=== PATIENT | female | born 1955 | race Caucasian/White ===

== ENCOUNTER 2021-11-17 16:47 | Inpatient (IN) | payer MEDICARE ==
[~2021-11-17] VITALS: Ht 162.6 cm; Wt 90.7 kg
[2021-11-17 21:20] VITALS: BP 109/64
[2021-11-18] MEDS ORDERED: NALOXONE HCL 0.4 MG/ML AMPUL IV PRN
[2021-11-18] MEDS ORDERED: REMEDY ESSENTIAL ZINC PASTE 113 GM TOP PRN (01:00)
[2021-11-18] MEDS ORDERED: FAMO-132 PO (02:13)
[2021-11-18] MEDS ORDERED: POLY119P2 PO (02:13)
[2021-11-18] MEDS ORDERED: PREG100C PO (02:13)
[2021-11-18] MEDS ORDERED: HYDR-3974 PO (02:13)
[2021-11-18] MEDS ORDERED: CYCL5TAB PO (02:13)
[2021-11-18] MEDS ORDERED: ROSU5TAB PO (02:13)
[2021-11-18] MEDS ORDERED: ONDA-104 PO (02:13)
[2021-11-18] MEDS ORDERED: LOSA50TA39 PO (02:13)
[2021-11-18] MEDS ORDERED: BISA10SU11 RC (02:13)
[2021-11-18] MEDS ORDERED: DOCU100C36 PO (02:13)
[2021-11-18] MEDS ORDERED: SENN-261 PO (02:13)
[2021-11-18] MEDS ORDERED: ACET-73 PO (02:13)
[2021-11-18] MEDS ORDERED: CANA100T PO (02:13)
[2021-11-18] MEDS ORDERED: HYDR-3980 PO (02:13)
[2021-11-18] MEDS: HYDROCODONE/APAP 10-325 MG TABLET PO PRN ×2 (03:31→10:28)
[2021-11-18 04:00] VITALS: BP 103/62
[2021-11-18] MEDS: OXYCODONE HCL 10 MG TAB.SR.12H PO SCH ×3 (05:30→22:49)
[2021-11-18 07:50] VITALS: BP 144/80
--- NOTE | 2021-11-18 09:01 | NUR ---
RECEIVED PT FROM [facility] PT ALERT AND ORIENTED X4 PT C/O PAIN AND HAS A LUMBAR DRESSING THAT NEEDS TO BE REPLACE MEDICATION GIVEN ORDERED. PT WAS GIVEN PAIN MEDICATION AND AND REASSESSED AFTER AN HOUR AFTERWARD DRESSING CHANGE IT WAS SEROSANGUINEOUS WILL ENDORSE TO AM NURSE OCONNELL. WILL CONTINUE TO MONITOR FOR SAFETY.
[2021-11-18] MEDS ORDERED: Medication Not On Formulary EA (Cyclobenzaprine Hcl 10 MG) PO SCH (10:00)
[2021-11-18] MEDS ORDERED: ACETAMINOPHEN ES 500 MG TABLET- SA PATIENTS-PAIN ONLY PO PRN (10:00)
[2021-11-18] MEDS ORDERED: ONDANSETRON HCL 4 MG TABLET PO PRN (10:00)
[2021-11-18] MEDS ORDERED: HYDROCODONE/APAP 10-325 MG TABLET PO PRN (10:00)
[2021-11-18] MEDS ORDERED: POLYETHYLENE GLYCOL 3350 238 GM POWDER PO SCH (10:00)
[2021-11-18] MEDS ORDERED: BISACODYL 10 MG SUPP.RECT RC PRN (10:00)
[2021-11-18] MEDS ORDERED: CYCLOBENZAPRINE HCL 10 MG TABLET PO PRN (10:15)
[2021-11-18] MEDS ORDERED: ACETAMINOPHEN ES 500 MG TABLET PO PRN (10:15)
[2021-11-18] MEDS: PREGABALIN 100 MG CAPSULE PO SCH ×2 (10:27→16:53)
[2021-11-18] MEDS: LOSARTAN POTASSIUM 50 MG TABLET PO SCH (10:27)
[2021-11-18] MEDS: FAMOTIDINE 20 MG TABLET PO SCH ×2 (10:28→16:53)
[2021-11-18] MEDS: MIRALAX 17 GM POWD.PACK PO SCH (10:28)
[2021-11-18] MEDS ORDERED: ERGO2500 PO (11:08)
[2021-11-18] MEDS ORDERED: RIVA10TA PO (11:08)
[2021-11-18] MEDS ORDERED: ERGOCALCIFEROL 50,000 UNIT CAPSULE PO SCH (11:15)
[2021-11-18 16:40] VITALS: BP 101/50
[2021-11-18] MEDS: DOCUSATE SODIUM 100 MG CAPSULE PO SCH (16:52)
[2021-11-18] MEDS: RIVAROXABAN 10 MG TABLET PO SCH (17:04)
[2021-11-18] MEDS ORDERED: RIVAROXABAN 10 MG TABLET PO SCH (18:00)
--- NOTE | 2021-11-18 20:00 | NUR ---
NSG: Received patient lying in bed. alert and oriented x4. no c/o pain or discomfort at this time. call light w/in reach.
[2021-11-18 20:30] VITALS: BP 102/52
[2021-11-18 22:58] VITALS: BP 111/70
--- NOTE | 2021-11-19 05:41 | NUR ---
NSG: PATIENT REMAIN CALM AND COOPERATIVE WITH CARE AND AM LAB. NO C/O PAIN OR DISCOMFORT AT THIS TIME. MRSA SWAB SENT TO LAB ORDERED. ASSISTED WITH ADL'S.CALL LIGHT W/IN REACH.
[2021-11-19] MEDS: HYDROCODONE/APAP 10-325 MG TABLET PO PRN ×3 (06:12→17:20)
[2021-11-19] MEDS: OXYCODONE HCL 10 MG TAB.SR.12H PO SCH ×3 (06:16→21:25)
[2021-11-19 07:47] VITALS: BP 106/64
[2021-11-19] MEDS: FAMOTIDINE 20 MG TABLET PO SCH ×2 (08:16→17:19)
[2021-11-19] MEDS: PREGABALIN 100 MG CAPSULE PO SCH ×2 (08:16→17:20)
[2021-11-19] MEDS: MIRALAX 17 GM POWD.PACK PO SCH (08:16)
[2021-11-19] MEDS: DOCUSATE SODIUM 100 MG CAPSULE PO SCH ×2 (08:16→17:20)
[2021-11-19] MEDS: LOSARTAN POTASSIUM 50 MG TABLET PO SCH (08:17)
[2021-11-19] MEDS ORDERED: CANAGLIFLOZIN 100 MG PO SCH (09:00)
--- NOTE | 2021-11-19 12:15 | NUR ---
Taking over care for patient from ALBA Lott. Pt is a/o x 4, no complaints of pain at this time. Will continue to monitor.
[2021-11-19 16:00] VITALS: BP 107/36
[2021-11-19] MEDS: RIVAROXABAN 10 MG TABLET PO SCH (17:20)
[2021-11-19 20:09] VITALS: BP 109/45
[2021-11-19] MEDS: ATORVASTATIN 10 MG TABLET PO SCH (21:09)
[2021-11-20 04:00] VITALS: BP 106/59
[2021-11-20] MEDS: OXYCODONE HCL 10 MG TAB.SR.12H PO SCH ×3 (05:17→21:50)
[2021-11-20] MEDS: SENNOSIDES 1 TABLET PO PRN (05:17)
[2021-11-20 07:35] VITALS: BP 119/66
[2021-11-20] MEDS: PREGABALIN 100 MG CAPSULE PO SCH ×2 (08:10→17:07)
[2021-11-20] MEDS ORDERED: Medication Not On Formulary EA (Rosuvastatin Calcium (Crestor) 5 MG) PO SCH (09:00)
--- NOTE | 2021-11-20 09:06 | NUR ---
INDIVIDUALIZED PLAN OF CARE
[2021-11-20] MEDS: MIRALAX 17 GM POWD.PACK PO SCH (09:07)
[2021-11-20] MEDS: DOCUSATE SODIUM 100 MG CAPSULE PO SCH ×2 (09:07→17:07)
[2021-11-20] MEDS: FAMOTIDINE 20 MG TABLET PO SCH ×2 (09:07→17:07)
[2021-11-20] MEDS: ERGOCALCIFEROL 50,000 UNIT CAPSULE PO SCH (09:07)
[2021-11-20] MEDS: LOSARTAN POTASSIUM 50 MG TABLET PO SCH (09:08)
[2021-11-20] MEDS: HYDROCODONE/APAP 10-325 MG TABLET PO PRN (09:14)
[2021-11-20] MEDS: MOMETASONE FUROATE 15 GM CREAM.GM. TOP SCH (14:13)
[2021-11-20 16:00] VITALS: BP 94/50
[2021-11-20] MEDS: RIVAROXABAN 10 MG TABLET PO SCH (17:08)
[2021-11-20 20:00] VITALS: BP 103/76
[2021-11-21] VITALS: BP 120/72
[2021-11-21 04:00] VITALS: BP 105/55
[2021-11-21] MEDS: OXYCODONE HCL 10 MG TAB.SR.12H PO SCH ×3 (06:04→21:19)
--- NOTE | 2021-11-21 07:42 | NUR ---
Patient in bed, awake, alert and oriented, no acute respiratory or physical distress noted. Able to verbalize her needs and follow directions. Patient watching TV at this time. Call light within reach, encouraged to please use it every timne help is needed.
[2021-11-21 08:09] VITALS: BP 100/63
[2021-11-21] MEDS: LOSARTAN POTASSIUM 50 MG TABLET PO SCH ×2 (08:33→08:34)
[2021-11-21] MEDS: DOCUSATE SODIUM 100 MG CAPSULE PO SCH ×2 (08:33→17:05)
[2021-11-21] MEDS: PREGABALIN 100 MG CAPSULE PO SCH ×3 (08:33→17:45)
[2021-11-21] MEDS: FAMOTIDINE 20 MG TABLET PO SCH ×2 (08:33→17:05)
[2021-11-21] MEDS: MIRALAX 17 GM POWD.PACK PO SCH (08:34)
[2021-11-21] MEDS: MOMETASONE FUROATE 15 GM CREAM.GM. TOP SCH (08:35)
[2021-11-21] MEDS: GLUCERNA SHAKE 237 ML CAN PO SCH (09:05)
--- NOTE | 2021-11-21 09:20 | NUR ---
0915-Scheduled/due medication administered with no ASE noted, oral fluids encouraged and taken well. Patient denies any discomfort. Call light at reach.
[2021-11-21 11:33] LABS: CREATININE 0.9 mg/dL (0.6-1.3); POTASSIUM 4.8 mmol/L (3.5-5.1)
[2021-11-21 11:39] LABS: BILIRUBIN,TOTAL 0.6 mg/dL (0.2-1.0); TOTAL PROTEIN, SERUM 7.2 g/dL (6.4-8.2)
[2021-11-21 12:02] LABS: HEMATOCRIT 34.4 % (31.2-41.9); MEAN CORPUSCULAR HEMOGLOBIN 32.2 uug (24.7-32.8); MEAN CORPUSCULAR VOLUME 93.6 fL (75.5-95.3); PLATELET COUNT (AUTO) 337 K/uL (179-408)
--- NOTE | 2021-11-21 12:56 | NUR ---
LOWER BACK SURGERY, S/P SPINAL STENOSIS L4-L5 LUMBAR AREA SURGICAL SITE, TREATMENT PROVIDED, SURGICAL LINE INTACT, NO ACTIVE BLEEDING/DRAINAGE/SWELLING OR REDNESS NOTED. PATIENT ÁNGELA. WELL, DENIES PAIN, CLEAN DD APPLIED.
--- NOTE | 2021-11-21 13:07 | NUR ---
SEEN AND EXAMINED BY Dr. CAMILO WITH ORDERS TO DC CURRENT LYRICA ORDER OF 100 MG BID AND START LYRICA 100MG TID. ORDERS NOTED AND CARRIED OUT. PATIENT INFORMED OF ORDERS BY Dr. CAMILO.
--- NOTE | 2021-11-21 14:12 | NUR ---
1400-PATIENT REC'D A PHONE CALL FROM Dr. ODONNELL, PER PATIENT Dr. ODONNELL DISCUSSED WITH HER DISCHARGE CARE INSTRUCTIONS, PER PATIENT SHE UNDERSTOOD ALL INSTRUCTIONS GIVEN AND ALSO, Dr. ODONNELL SPOKE TO HER DAUGHTER (PATIENT'S DAUGHTER) AT 10: 06 AM.
[2021-11-21 16:40] VITALS: BP 109/52
[2021-11-21] MEDS: RIVAROXABAN 10 MG TABLET PO SCH (17:06)
[2021-11-21] MEDS: HYDROCODONE/APAP 10-325 MG TABLET PO PRN (17:14)
[2021-11-21 20:00] VITALS: BP 97/56
[2021-11-21] MEDS: ATORVASTATIN 10 MG TABLET PO SCH (20:03)
[2021-11-22 03:40] LABS: *BLOOD, URINE NEGATIVE (NEGATIVE); *CLARITY,URINE CLEAR (CLEAR); *COLOR,URINE YELLOW (YELLOW); PH,URINE 5.5 (5.0-8.0); UGLUCOSE 1+ (NEGATIVE)
[2021-11-22 03:41] LABS: *KETONES,URINE NEGATIVE (NEGATIVE); *UROBILINOGEN,URINE 0.2 E.U./dl (NORMAL)
[2021-11-22 03:42] LABS: *BILIRUBIN,URIN NEGATIVE (NEGATIVE); LEUKOCYTE ESTERASE ,URINE NEGATIVE (NEGATIVE); NITRITE, URINE NEGATIVE (NEGATIVE)
[2021-11-22 04:00] VITALS: BP 148/80
[2021-11-22 04:13] LABS: BACTERIA,URINE NONE SEEN /HPF (NONE SEEN); RBC,URINE NONE SEEN /HPF (0-3); SQUAMOUS EPITHELIAL CELL,UR MODERATE /HPF (NONE SEEN); URINE AMORPHOUS URATE FEW /HPF; WBC,URINE NONE SEEN /HPF (0-3)
[2021-11-22] MEDS: OXYCODONE HCL 10 MG TAB.SR.12H PO SCH ×3 (06:05→21:15)
[2021-11-22 07:48] VITALS: BP 132/69
[2021-11-22] MEDS: DOCUSATE SODIUM 100 MG CAPSULE PO SCH ×2 (08:51→17:02)
[2021-11-22] MEDS: FAMOTIDINE 20 MG TABLET PO SCH ×2 (08:51→17:02)
[2021-11-22] MEDS: PREGABALIN 100 MG CAPSULE PO SCH ×3 (08:51→17:02)
[2021-11-22] MEDS: MOMETASONE FUROATE 15 GM CREAM.GM. TOP SCH (08:51)
[2021-11-22] MEDS: MIRALAX 17 GM POWD.PACK PO SCH ×2 (08:51→08:56)
[2021-11-22] MEDS: GLUCERNA SHAKE 237 ML CAN PO SCH (08:52)
[2021-11-22] MEDS: HYDROCODONE/APAP 10-325 MG TABLET PO PRN (08:52)
[2021-11-22 15:12] VITALS: BP 108/77
[2021-11-22] MEDS: HYDROCODONE/APAP 5-325MG TABLET PO PRN (17:03)
[2021-11-22] MEDS: RIVAROXABAN 10 MG TABLET PO SCH (18:42)
[2021-11-22 20:19] VITALS: BP 95/54
--- NOTE | 2021-11-23 04:06 | NUR ---
AAOx4 Admitted for lumbar laminectomy with fusion. Lower back incision with sutures intact, no drainage noted. All needs attended. VSS. Pain meds given as ordered with relief obtained. Continent of bowel and bladder. No acute distress noted. Will monitor patient.
[2021-11-23 04:16] VITALS: BP 106/68
[2021-11-23] MEDS: OXYCODONE HCL 10 MG TAB.SR.12H PO SCH ×3 (05:32→22:00)
[2021-11-23 08:13] VITALS: BP 99/63
[2021-11-23] MEDS: GLUCERNA SHAKE 237 ML CAN PO SCH (08:24)
[2021-11-23] MEDS: MIRALAX 17 GM POWD.PACK PO SCH (08:24)
[2021-11-23] MEDS: FAMOTIDINE 20 MG TABLET PO SCH ×2 (08:24→16:33)
[2021-11-23] MEDS: PREGABALIN 100 MG CAPSULE PO SCH ×3 (08:24→16:32)
[2021-11-23] MEDS: DOCUSATE SODIUM 100 MG CAPSULE PO SCH ×2 (08:24→16:33)
[2021-11-23] MEDS: MOMETASONE FUROATE 15 GM CREAM.GM. TOP SCH (08:25)
[2021-11-23] MEDS: HYDROCODONE/APAP 5-325MG TABLET PO PRN (08:35)
[2021-11-23] MEDS: SENNOSIDES 1 TABLET PO PRN (09:24)
--- NOTE | 2021-11-23 14:12 | NUR ---
INTERDISCIPLINARY TEAM CONFERENCE
[2021-11-23] MEDS: HYDROCODONE/APAP 10-325 MG TABLET PO PRN (16:33)
[2021-11-23] MEDS: RIVAROXABAN 10 MG TABLET PO SCH (17:08)
[2021-11-23 17:13] VITALS: BP 103/55
--- NOTE | 2021-11-23 18:56 | NUR ---
no acute distress noted. back incision site is clean and dry.
[2021-11-23 20:00] VITALS: BP 107/54
[2021-11-23] MEDS: ATORVASTATIN 10 MG TABLET PO SCH (21:00)
[2021-11-24 04:00] VITALS: BP 119/68
--- NOTE | 2021-11-24 06:00 | NUR ---
--PT CONT. WITH STABLE VS. PT HAS BEEN A/OX4. PT MED WITH OXYCONTIN 10MG PO ROUTINE MED. PT HAD C/O PAIN BUT STATES RELIEF AFTER BEING MED. PT RATES PAIN AT 7/10 FROM BACK PAIN. GEN COND HAS BEEN STABLE. PT ENDORSED TO SAE TAY RN
[2021-11-24] MEDS: OXYCODONE HCL 10 MG TAB.SR.12H PO SCH ×3 (06:35→21:41)
[2021-11-24 07:46] VITALS: BP 105/57
[2021-11-24] MEDS: PREGABALIN 100 MG CAPSULE PO SCH ×3 (08:07→16:10)
[2021-11-24] MEDS: FAMOTIDINE 20 MG TABLET PO SCH ×2 (08:07→16:10)
[2021-11-24] MEDS: DOCUSATE SODIUM 100 MG CAPSULE PO SCH ×2 (08:08→16:10)
[2021-11-24] MEDS: MIRALAX 17 GM POWD.PACK PO SCH (08:08)
[2021-11-24] MEDS: GLUCERNA SHAKE 237 ML CAN PO SCH (08:08)
[2021-11-24] MEDS: MOMETASONE FUROATE 15 GM CREAM.GM. TOP SCH (08:55)
[2021-11-24 15:12] VITALS: BP 108/56
[2021-11-24] MEDS: RIVAROXABAN 10 MG TABLET PO SCH (17:15)
[2021-11-24] MEDS: HYDROCODONE/APAP 10-325 MG TABLET PO PRN (17:18)
[2021-11-24 20:00] VITALS: BP 109/58
[2021-11-25 04:00] VITALS: BP 120/66
[2021-11-25] MEDS: OXYCODONE HCL 10 MG TAB.SR.12H PO SCH ×3 (05:10→21:08)
[2021-11-25 07:40] VITALS: BP 119/57
[2021-11-25] MEDS: DOCUSATE SODIUM 100 MG CAPSULE PO SCH ×2 (09:29→17:21)
[2021-11-25] MEDS: PREGABALIN 100 MG CAPSULE PO SCH ×3 (09:29→17:21)
[2021-11-25] MEDS: GLUCERNA SHAKE 237 ML CAN PO SCH (09:29)
[2021-11-25] MEDS: MIRALAX 17 GM POWD.PACK PO SCH (09:29)
[2021-11-25] MEDS: FAMOTIDINE 20 MG TABLET PO SCH ×2 (09:29→17:21)
[2021-11-25] MEDS: MOMETASONE FUROATE 15 GM CREAM.GM. TOP SCH (09:30)
[2021-11-25] MEDS: HYDROCODONE/APAP 10-325 MG TABLET PO PRN ×2 (12:02→17:23)
[2021-11-25 15:17] VITALS: BP 115/55
[2021-11-25] MEDS: RIVAROXABAN 10 MG TABLET PO SCH (17:22)
[2021-11-25 20:00] VITALS: BP 110/63
[2021-11-25] MEDS: ATORVASTATIN 10 MG TABLET PO SCH (20:36)
--- NOTE | 2021-11-26 04:08 | NUR ---
AAOx4 Admitted for lumbar fusion. All needs attended. VSS. Kept comfortable. Continent of bowel and bladder. Kept clean and dry. No distress noted.
[2021-11-26] MEDS: OXYCODONE HCL 10 MG TAB.SR.12H PO SCH ×3 (05:15→21:21)
[2021-11-26 08:35] VITALS: BP 111/63
[2021-11-26] MEDS: DOCUSATE SODIUM 100 MG CAPSULE PO SCH ×2 (08:53→16:15)
[2021-11-26] MEDS: FAMOTIDINE 20 MG TABLET PO SCH ×2 (08:53→16:15)
[2021-11-26] MEDS: PREGABALIN 100 MG CAPSULE PO SCH ×3 (08:53→16:15)
[2021-11-26] MEDS: GLUCERNA SHAKE 237 ML CAN PO SCH (08:54)
[2021-11-26] MEDS: MIRALAX 17 GM POWD.PACK PO SCH (08:54)
[2021-11-26] MEDS: MOMETASONE FUROATE 15 GM CREAM.GM. TOP SCH (08:54)
[2021-11-26] MEDS: HYDROCODONE/APAP 10-325 MG TABLET PO PRN (11:03)
[2021-11-26 15:09] VITALS: BP 117/60
[2021-11-26] MEDS: RIVAROXABAN 10 MG TABLET PO SCH (17:07)
--- NOTE | 2021-11-26 17:45 | NUR ---
back incision is dry and clean. dressing changed, no acute distress noted
[2021-11-26 20:00] VITALS: BP 119/63
--- NOTE | 2021-11-27 04:25 | NUR ---
AAOx4 All needs attended. VSS No acute distress noted. Pain meds given as scheduled. Will monitor patient. Back incision dressing intact.
[2021-11-27 05:12] VITALS: BP 130/70
[2021-11-27] MEDS: OXYCODONE HCL 10 MG TAB.SR.12H PO SCH ×3 (05:34→21:01)
[2021-11-27 07:53] VITALS: BP 106/60
[2021-11-27] MEDS: PREGABALIN 100 MG CAPSULE PO SCH ×3 (08:15→16:58)
[2021-11-27] MEDS: FAMOTIDINE 20 MG TABLET PO SCH ×2 (08:21→16:58)
[2021-11-27] MEDS: HYDROCODONE/APAP 10-325 MG TABLET PO PRN ×2 (08:21→17:10)
[2021-11-27] MEDS: ERGOCALCIFEROL 50,000 UNIT CAPSULE PO SCH (08:21)
[2021-11-27] MEDS: DOCUSATE SODIUM 100 MG CAPSULE PO SCH ×2 (08:21→17:00)
[2021-11-27] MEDS: MIRALAX 17 GM POWD.PACK PO SCH (08:22)
[2021-11-27] MEDS: MOMETASONE FUROATE 15 GM CREAM.GM. TOP SCH (08:24)
[2021-11-27] MEDS: GLUCERNA SHAKE 237 ML CAN PO SCH (08:26)
[2021-11-27 15:52] VITALS: BP 112/68
[2021-11-27] MEDS: RIVAROXABAN 10 MG TABLET PO SCH (17:01)
[2021-11-27 20:00] VITALS: BP 96/51
[2021-11-27] MEDS: ATORVASTATIN 10 MG TABLET PO SCH (20:22)
[2021-11-28 04:00] VITALS: BP 92/51
[2021-11-28] MEDS: OXYCODONE HCL 10 MG TAB.SR.12H PO SCH ×3 (05:05→21:16)
[2021-11-28 07:31] VITALS: BP 103/59
[2021-11-28] MEDS: DOCUSATE SODIUM 100 MG CAPSULE PO SCH ×2 (09:00→16:57)
[2021-11-28] MEDS: MIRALAX 17 GM POWD.PACK PO SCH (09:00)
[2021-11-28] MEDS: FAMOTIDINE 20 MG TABLET PO SCH ×2 (09:46→16:53)
[2021-11-28] MEDS: GLUCERNA SHAKE 237 ML CAN PO SCH (09:47)
[2021-11-28] MEDS: PREGABALIN 100 MG CAPSULE PO SCH ×3 (09:50→16:53)
[2021-11-28] MEDS: HYDROCODONE/APAP 10-325 MG TABLET PO PRN ×2 (11:24→16:53)
[2021-11-28] MEDS ORDERED: LIDOCAINE HCL 1% 20 ML VIAL IJ PRN (13:00)
[2021-11-28] MEDS: MOMETASONE FUROATE 15 GM CREAM.GM. TOP SCH (13:07)
[2021-11-28] MEDS ORDERED: TRIAMCINOLONE ACETONIDE 40 MG/1 ML VIAL IM ONE (13:30)
--- NOTE | 2021-11-28 14:33 | NUR ---
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 She is A&O x4. Pt is breathing normal room air. No apparent distress nor discomfort noted. She is calm and relaxed and cooperative. 11/15/21 laminectomy suture done. Pt has a back brace. She is full code on regular diet and no known allergies. Pt is continence. Skin intact, cool to the touch. She is able to use walker with mod assist. She is in bed, transfer and ambulate with [id number]. request norco for pain on right knee, doctor came and saw patient today. She is scheduled to be d/c 12/02/21. No new concerns reported. Will continue to monitor.
[2021-11-28 15:30] VITALS: BP 110/70
[2021-11-28 16:33] VITALS: BP 127/65
[2021-11-28] MEDS: RIVAROXABAN 10 MG TABLET PO SCH (18:06)
[2021-11-28 20:00] VITALS: BP 102/56
[2021-11-29 04:00] VITALS: BP 118/64
[2021-11-29] MEDS: OXYCODONE HCL 10 MG TAB.SR.12H PO SCH ×3 (05:45→21:40)
[2021-11-29] MEDS: DOCUSATE SODIUM 100 MG CAPSULE PO SCH ×2 (08:03→16:21)
[2021-11-29] MEDS: PREGABALIN 100 MG CAPSULE PO SCH ×3 (08:03→16:21)
[2021-11-29] MEDS: FAMOTIDINE 20 MG TABLET PO SCH ×2 (08:03→16:21)
[2021-11-29] MEDS: MOMETASONE FUROATE 15 GM CREAM.GM. TOP SCH (08:03)
[2021-11-29] MEDS: MIRALAX 17 GM POWD.PACK PO SCH (08:03)
[2021-11-29] MEDS: GLUCERNA SHAKE 237 ML CAN PO SCH (08:05)
[2021-11-29 09:37] VITALS: BP 109/62
--- NOTE | 2021-11-29 10:21 | NUR ---
WOUND CARE CONSULT: PT PRESENTS INDEPENDENT WITH BED MOBILITY (CURRENT ZELDA SCORE OF 19) WITH CLOSED INCISION TO BACK AND ABRASION/OPEN SKIN TO LEFT UPPER BUTTOCK. PT STATES THAT SHE USES A BACK BRACE. RECOMMEND SURGICAL CONSULT. DISCUSSED SKIN PROTECTION WITH NURSING STAFF. IN AGREEMENT WITH PLAN OF CARE. Addendum: 11/29/21 at 1022 by CAROLINA NIX RN Amended: Links added.
[2021-11-29 15:50] VITALS: BP 126/64
[2021-11-29] MEDS: RIVAROXABAN 10 MG TABLET PO SCH (17:09)
[2021-11-29] MEDS: HYDROCODONE/APAP 5-325MG TABLET PO PRN (18:23)
[2021-11-29 20:00] VITALS: BP 115/61
[2021-11-29] MEDS: ATORVASTATIN 10 MG TABLET PO SCH (20:32)
[2021-11-29] MEDS: NEOMY/BACITRAC/POLYMI OINT 28.35 GM TUBE TOP SCH (21:30)
--- NOTE | 2021-11-29 22:02 | NUR ---
Triple antibiotic ointment not available pharmacy close. Will administer in am.
[2021-11-30 04:00] VITALS: BP 109/70
--- NOTE | 2021-11-30 04:25 | NUR ---
AAOx4 Quiet night. OOB with walker to the BR. Voiding well. All due meds given. Pain meds given without difficulty. Back incision intact, dressing in place. Will monitor patient. Fall precautions maintained. Siderails up for safety.
[2021-11-30] MEDS: OXYCODONE HCL 10 MG TAB.SR.12H PO SCH ×3 (05:16→22:03)
[2021-11-30 07:37] VITALS: BP 117/67
[2021-11-30] MEDS: FAMOTIDINE 20 MG TABLET PO SCH ×2 (08:58→16:41)
[2021-11-30] MEDS: DOCUSATE SODIUM 100 MG CAPSULE PO SCH ×2 (08:58→16:40)
[2021-11-30] MEDS: MIRALAX 17 GM POWD.PACK PO SCH (08:58)
[2021-11-30] MEDS: PREGABALIN 100 MG CAPSULE PO SCH ×3 (08:58→16:40)
[2021-11-30] MEDS: NEOMY/BACITRAC/POLYMI OINT 28.35 GM TUBE TOP SCH (08:59)
[2021-11-30] MEDS: MOMETASONE FUROATE 15 GM CREAM.GM. TOP SCH (09:00)
[2021-11-30] MEDS: GLUCERNA SHAKE 237 ML CAN PO SCH (09:02)
[2021-11-30] MEDS: HYDROCODONE/APAP 10-325 MG TABLET PO PRN (12:51)
--- NOTE | 2021-11-30 14:34 | NUR ---
0730-Rec'd patient in bed, awake, alert and verbally communicative, denies any discomfort at this time; no respiratory distress noted, Patient in stable conditions. Safety measures in place and call light at reach. 0900-Scheduled/due medications administered as ordered with no ASE, oral fluids taken well. Mometasone Furoate cream applied to top of left foot; treatment provided to lower back surgery site, Triple Antibiotic Ointment and a clean DD applied, patient susanna. well and denies any pain; Back brace in place when OOB. 1000-Patient out to therapy, ambulates with supervision and using a FWW, safety precautions reminders provided as needed. 8080-[id number] Stokes, specimen obtained and taken to the lab. 1430-Patient in bed, awake, no respiratory distress noted, oral fluids encouraged as susanna. patient's daughter at bedside visiting, encouraged to ask for assist every time help is needed with good understanding.
--- NOTE | 2021-11-30 15:29 | NUR ---
INTERDISCIPLINARY TEAM CONFERENCE
[2021-11-30 15:44] VITALS: BP 106/63
[2021-11-30] MEDS: ARGININE/GLUTAMINE/CALCIUM BMB 1 EACH POWD.PACK PO SCH (17:41)
[2021-11-30] MEDS: RIVAROXABAN 10 MG TABLET PO SCH (18:05)
[2021-11-30 20:00] VITALS: BP 98/55
[2021-12-01 04:00] VITALS: BP 134/68
[2021-12-01] MEDS: OXYCODONE HCL 10 MG TAB.SR.12H PO SCH ×2 (06:04→14:13)
[2021-12-01 06:24] LABS: HEMATOCRIT 31.3 % (31.2-41.9); MEAN CORPUSCULAR HEMOGLOBIN 32.3 uug (24.7-32.8); MEAN CORPUSCULAR VOLUME 93.4 fL (75.5-95.3); PLATELET COUNT (AUTO) 264 K/uL (179-408)
[2021-12-01 06:31] LABS: BILIRUBIN,TOTAL 0.3 mg/dL (0.2-1.0); CREATININE 0.9 mg/dL (0.6-1.3); POTASSIUM 3.8 mmol/L (3.5-5.1); TOTAL PROTEIN, SERUM 6.6 g/dL (6.4-8.2)
[2021-12-01 07:36] VITALS: BP 127/64
[2021-12-01 07:49] VITALS: BP 127/64
[2021-12-01] MEDS: DOCUSATE SODIUM 100 MG CAPSULE PO SCH ×2 (08:43→08:47)
[2021-12-01] MEDS: PREGABALIN 100 MG CAPSULE PO SCH ×3 (08:43→16:42)
[2021-12-01] MEDS: FAMOTIDINE 20 MG TABLET PO SCH ×2 (08:43→16:43)
[2021-12-01] MEDS: MIRALAX 17 GM POWD.PACK PO SCH (08:44)
[2021-12-01] MEDS: NEOMY/BACITRAC/POLYMI OINT 28.35 GM TUBE TOP SCH (08:44)
[2021-12-01] MEDS: MOMETASONE FUROATE 15 GM CREAM.GM. TOP SCH (08:44)
[2021-12-01] MEDS: ARGININE/GLUTAMINE/CALCIUM BMB 1 EACH POWD.PACK PO SCH (08:45)
[2021-12-01] MEDS: GLUCERNA SHAKE 237 ML CAN PO SCH (08:45)
[2021-12-01 10:03] LABS: *BILIRUBIN,URIN NEGATIVE (NEGATIVE); *BLOOD, URINE NEGATIVE (NEGATIVE); *CLARITY,URINE CLEAR (CLEAR); *COLOR,URINE YELLOW (YELLOW); *KETONES,URINE NEGATIVE (NEGATIVE); *UROBILINOGEN,URINE 0.2 E.U./dl (NORMAL); LEUKOCYTE ESTERASE ,URINE 1+ (NEGATIVE); NITRITE, URINE NEGATIVE (NEGATIVE); PH,URINE 6.5 (5.0-8.0); UGLUCOSE NEGATIVE (NEGATIVE)
[2021-12-01] MEDS: HYDROCODONE/APAP 10-325 MG TABLET PO PRN ×2 (10:43→16:45)
[2021-12-01 12:53] LABS: BACTERIA,URINE FEW /HPF (NONE SEEN); RBC,URINE NONE SEEN /HPF (0-3); SQUAMOUS EPITHELIAL CELL,UR FEW /HPF (NONE SEEN)
--- NOTE | 2021-12-01 16:53 | NUR ---
Patient was picked up by [facility] ambulance to be taken to [facility], full report given to Meg RN at said facility. Patient was medicated with norco 10/325mg PRN based on her pain level needs/ordered by MD. Scheduled medication, Lyrica & Famotidine administered as well; patient left in good stable conditions. All belongings/paperwork needed given. VSS, patient left expressing to be thankful and appreciative for the services provided and to the staff for the good care rec'd.
== END 2021-12-01 17:00 | DRG 560 ==
PROVIDERS: ADMIT Physical Medicine & Rehabilitation Pain Medicine; ATTEND Physical Medicine & Rehabilitation Pain Medicine
DX: Z47.89 Encounter for other orthopedic aftercare (principal); E44.1 Mild protein-calorie malnutrition; M43.16 Spondylolisthesis, lumbar region; M54.16 Radiculopathy, lumbar region; M48.061 Spinal stenosis, lumbar region without neurogenic claudication; G89.4 Chronic pain syndrome; E11.9 Type 2 diabetes mellitus without complications; E88.09 Other disorders of plasma-protein metabolism, not elsewhere classified; I10 Essential (primary) hypertension; Z91.81 History of falling; Z98.1 Arthrodesis status; F32.A Depression, unspecified; F41.9 Anxiety disorder, unspecified; S30.810A Abrasion of lower back and pelvis, initial encounter; X58.XXXA Exposure to other specified factors, initial encounter; Y93.89 Activity, other specified; Y92.230 Patient room in hospital as the place of occurrence of the external cause
CPT/HCPCS: 36415; 85025; 87086; 97535-GO-CO; J3301; J3490

== ENCOUNTER 2023-08-30 14:28 | Inpatient (IN) | payer MEDICARE, OTHER ==
[~2023-08-30] VITALS: Ht 154.9 cm; Wt 90.7 kg
[~2023-08-30 14:28] MED LIST: ACET-73 PO; BISA10SU11 RC; CYCL5TAB PO; DOCU100C36 PO; ERGO2500 PO; FAMO-132 PO; HYDR-3974 PO; HYDR-3980 PO; LOSA50TA39 PO; ONDA-104 PO; POLY119P2 PO; PREG100C PO; RIVA10TA PO; ROSU5TAB PO; SENN-261 PO
[2023-08-30 23:55] VITALS: BP 130/78; TEMP 98.1; O2SAT 95
[2023-08-31] MEDS ORDERED: HYDR-3980 PO (02:33)
[2023-08-31] MEDS ORDERED: DOCU100C36 PO (02:35)
[2023-08-31] MEDS ORDERED: GABA-532 PO ×2 (02:40→09:55)
[2023-08-31] MEDS ORDERED: POLY250017 PO (02:41)
[2023-08-31] MEDS ORDERED: DAPA10TA PO (02:42)
[2023-08-31] MEDS ORDERED: PROP60CA2 PO (02:47)
[2023-08-31] MEDS ORDERED: RIVA2.5T PO (02:49)
[2023-08-31] MEDS ORDERED: ROSU5TAB PO (02:50)
[2023-08-31] MEDS ORDERED: SEMA0.253 SQ (03:02)
[2023-08-31] MEDS: GABAPENTIN 100 MG CAPSULE PO SCH (06:00)
[2023-08-31] MEDS ORDERED: ERGOCALCIFEROL 50000 UNIT PO SCH (06:00)
[2023-08-31] MEDS ORDERED: ROSUVASTATIN CALCIUM PO SCH (06:00)
[2023-08-31 06:05] VITALS: BP 120/64; TEMP 98.6; O2SAT 95
[2023-08-31] MEDS ORDERED: Medication Not On Formulary EA (Rosuvastatin Calcium (Crestor) 5 MG) PO SCH (09:00)
[2023-08-31] MEDS: FAMOTIDINE 20 MG TABLET PO SCH (09:00)
[2023-08-31] MEDS ORDERED: PROPRANOLOL LA 60 MG CAP.SA.24H PO SCH ×2 (09:00)
[2023-08-31] MEDS ORDERED: POLYETHYLENE GLYCOL 3350 238 GM POWDER PO SCH (09:00)
[2023-08-31] MEDS: LOSARTAN POTASSIUM 50 MG TABLET PO SCH (09:23)
[2023-08-31] MEDS ORDERED: PROP60CA38 PO (09:37)
[2023-08-31] MEDS ORDERED: XARELTO 2.5 MG PO SCH (09:45)
[2023-08-31] MEDS: MIRALAX 17 GM POWD.PACK PO SCH (09:59)
[2023-08-31] MEDS: HYDROCODONE/APAP 10-325 MG TABLET PO PRN (11:29)
[2023-08-31] MEDS ORDERED: ERGO500040 PO (11:43)
[2023-08-31 12:00] VITALS: BP 125/78; TEMP 98.1; O2SAT 96
[2023-08-31] MEDS: SENNOSIDES 1 TABLET PO PRN (15:36)
[2023-08-31 16:03] VITALS: BP 120/67; TEMP 98.9; O2SAT 94
[2023-08-31] MEDS: FARXIGA 10 MG PO SCH (17:56)
[2023-08-31] MEDS: XARELTO 2.5 MG PO SCH (17:57)
[2023-08-31] MEDS ORDERED: RIVAROXABAN 10 MG TABLET PO SCH (18:00)
[2023-08-31] MEDS ORDERED: GABAPENTIN 100 MG CAPSULE PO SCH (18:00)
[2023-08-31 20:00] VITALS: BP 97/58; TEMP 98; O2SAT 96
[2023-08-31] MEDS: ROSUVASTATIN 5 MG PO SCH (21:18)
[2023-08-31] MEDS: [UNRECOGNIZED DRUG - OTHER] PO SCH (21:18)
[2023-08-31] MEDS: PROPRANOLOL LA 60 MG CAP.SA.24H PO SCH (21:19)
[2023-09-01 04:55] VITALS: BP 121/65; TEMP 97.7; O2SAT 93
[2023-09-01 16:00] VITALS: BP 108/64; TEMP 97.8; O2SAT 97
[2023-09-01] MEDS: XARELTO 2.5 MG PO SCH (18:00)
[2023-09-01 20:27] VITALS: BP 102/53; TEMP 98.5; O2SAT 96
[2023-09-02 06:00] VITALS: BP 120/63; TEMP 97.9; O2SAT 96
[2023-09-02 06:44] LABS: BASOPHILS % (AUTO) 0.8 % (0.0-2.0); EOSINOPHILS # (AUTO) 0.1 K/uL (0.0-0.7); EOSINOPHILS % (AUTO) 2.7 % (0.0-7.0); HEMATOCRIT 35.3 % (31.2-41.9); HEMOGLOBIN 11.9 g/dL (10.9-14.3); LYMPHOCYTES # (AUTO) 1.2 K/uL (0.8-4.8); LYMPHOCYTES % (AUTO) 31.6 % (20.5-51.5); MEAN CORPUSCULAR HEMOGLOBIN 33.2 uug (24.7-32.8); MEAN CORPUSCULAR HGB CONC 34 g/dL (32.3-35.6); MEAN CORPUSCULAR VOLUME 98.4 fL (75.5-95.3); MONOCYTES # (AUTO) 0.4 K/uL (0.1-1.30); MONOCYTES % (AUTO) 10.4 % (0.0-11.0); NEUTROPHILS # (AUTO) 2.1 K/uL (1.8-8.9); NEUTROPHILS % (AUTO) 54.5 % (38.5-71.5); PLATELET COUNT (AUTO) 147 K/uL (179-408); RED BLOOD CELL COUNT(AUTO) 3.59 MIL/uL (3.63-4.92); RED CELL DISTRIBUTION WIDTH 13.6 % (12.3-17.7); WHITE BLOOD COUNT (AUTO) 3.9 K/uL (3.8-11.8)
[2023-09-02 07:19] LABS: DIFFERENTIAL COMMENT 1
[2023-09-02] MEDS: ERGOCALCIFEROL 50,000 UNIT CAPSULE PO SCH (08:35)
[2023-09-02 09:00] VITALS: BP 111/56; TEMP 98.5; O2SAT 96
[2023-09-02 09:24] LABS: ALBUMIN 2.2 g/dL (3.4-5.0); BILIRUBIN,TOTAL 0.5 mg/dL (0.2-1.0); CALCIUM 8.8 mg/dL (8.5-10.1); CREATININE 0.8 mg/dL (0.6-1.3); MAGNESIUM 2.1 mg/dL (1.8-2.4); PHOSPHOROUS 3.8 mg/dL (2.5-4.9); POTASSIUM 3.9 mmol/L (3.5-5.1); TOTAL PROTEIN, SERUM 6.9 g/dL (6.4-8.2)
[2023-09-02] MEDS: ONDANSETRON ODT 4 MG TAB.RAPDIS SL PRN (13:07)
[2023-09-02 15:19] VITALS: BP 124/65; TEMP 98.2; O2SAT 96
[2023-09-02 20:46] VITALS: BP 108/70; TEMP 98.2; O2SAT 96
[2023-09-03 06:10] VITALS: BP 123/59; TEMP 98.3; O2SAT 99
[2023-09-03 12:41] VITALS: BP 128/61; TEMP 98.8; O2SAT 99
[2023-09-03 13:35] LABS: THYROID STIMULATING HORMONE 2.4 mIU/mL (0.358-3.740)
[2023-09-03 14:59] VITALS: BP 104/52; TEMP 98.8; O2SAT 95
[2023-09-03] MEDS ORDERED: CYANOCOBALAMIN 1000 MCG/ML VIAL IM SCH (16:45)
[2023-09-03] MEDS: CYANOCOBALAMIN 1000 MCG/ML VIAL IM SCH (18:58)
[2023-09-03 19:58] VITALS: BP 115/55; TEMP 97.9; O2SAT 94
[2023-09-04 05:30] VITALS: BP 120/56; TEMP 98.2; O2SAT 100
[2023-09-04 16:00] VITALS: BP 105/60; TEMP 98.1; O2SAT 97
[2023-09-04 20:00] VITALS: BP 91/58; TEMP 98.9; O2SAT 96
[2023-09-05 05:58] VITALS: BP 129/69; TEMP 98.5; O2SAT 100
[2023-09-05 15:48] VITALS: BP 110/50; TEMP 98.8; O2SAT 94
[2023-09-05 20:48] VITALS: BP 104/55; TEMP 98; O2SAT 94
[2023-09-06 06:40] VITALS: BP 114/58; TEMP 98; O2SAT 96
[2023-09-06 16:04] VITALS: BP 94/69; TEMP 99; O2SAT 95
[2023-09-06 22:02] VITALS: BP 111/61; TEMP 98.9; O2SAT 96
[2023-09-07 06:46] VITALS: BP 113/61; TEMP 98.4; O2SAT 96
[2023-09-07 16:40] VITALS: BP 111/68; TEMP 98.7; O2SAT 96
[2023-09-07] MEDS: KETOCONAZOLE 2% CREAM 30 GM TUBE TP SCH (17:57)
[2023-09-07 21:40] VITALS: BP 122/59; TEMP 99.8; O2SAT 97
[2023-09-08 06:00] VITALS: BP 109/63; TEMP 98.4; O2SAT 97
[2023-09-08 15:29] VITALS: BP 149/74; TEMP 98.8; O2SAT 97
[2023-09-09 15:15] VITALS: BP 117/62; TEMP 98.8; O2SAT 93
[2023-09-09 21:09] VITALS: TEMP 98
[2023-09-10 07:09] VITALS: TEMP 98.4
[2023-09-10] MEDS: MIRALAX 17 GM POWD.PACK PO PRN (11:14)
[2023-09-10 16:01] VITALS: BP 106/71; TEMP 98; O2SAT 97
[2023-09-10 20:00] VITALS: BP 117/69; TEMP 98; O2SAT 98
[2023-09-11 06:47] VITALS: BP 115/74; TEMP 98.1; O2SAT 98
[2023-09-11 15:55] VITALS: BP 105/64; TEMP 98.8; O2SAT 95
[2023-09-11 20:58] VITALS: BP 107/64; TEMP 98.5; O2SAT 98
[2023-09-12 06:10] VITALS: BP 103/61; TEMP 98.5; O2SAT 95
[2023-09-12 15:10] VITALS: BP 102/61; TEMP 97.5; O2SAT 95
[2023-09-12 20:25] VITALS: BP 104/75; TEMP 98.9; O2SAT 96
[2023-09-13 06:20] VITALS: BP 108/61; TEMP 98.1; O2SAT 95
[2023-09-13 15:13] VITALS: BP 101/75; TEMP 98.9; O2SAT 96
[2023-09-13 20:19] VITALS: BP 100/58; TEMP 98.6; O2SAT 100
[2023-09-14 06:50] VITALS: BP 104/67; TEMP 98; O2SAT 96
[2023-09-14 16:07] VITALS: BP 106/70; TEMP 98.6; O2SAT 98
[2023-09-14 20:00] VITALS: BP 115/67; TEMP 99.3; O2SAT 95
[2023-09-15 07:00] VITALS: BP 121/75; TEMP 98.5; O2SAT 95
[2023-09-15] MEDS: CYANOCOBALAMIN 1000 MCG/ML VIAL IM ONE (10:55)
[2023-09-15 13:52] VITALS: BP 121/70; TEMP 98.3; O2SAT 98
[2023-09-16] MEDS ORDERED: CYANOCOBALAMIN 1000 MCG/ML VIAL IM SCH (09:00)
[2023-11-05] MEDS ORDERED: CYANOCOBALAMIN 1000 MCG/ML VIAL IM SCH (09:00)
== END 2023-09-15 14:55 | disposition home health service (06) | DRG 559 ==
LOC: UNDOADMIN 23:55
PROVIDERS: ADMIT Physical Medicine & Rehabilitation Pain Medicine; ATTEND Physical Medicine & Rehabilitation Pain Medicine
DX: Z47.1 Aftercare following joint replacement surgery (principal); E43 Unspecified severe protein-calorie malnutrition; D68.59 Other primary thrombophilia; E11.9 Type 2 diabetes mellitus without complications; I10 Essential (primary) hypertension; Z96.651 Presence of right artificial knee joint; E66.9 Obesity, unspecified; Z68.37 Body mass index [BMI] 37.0-37.9, adult; E53.8 Deficiency of other specified B group vitamins; E78.5 Hyperlipidemia, unspecified; Z79.891 Long term (current) use of opiate analgesic; Z79.899 Other long term (current) drug therapy; Z98.1 Arthrodesis status
CPT/HCPCS: 36415; 73562; 83550; 83735; 84100; 84443; 85025; 97535-GO-CO; A4663; J3420; Q0162

== ENCOUNTER 2023-11-02 13:04 | Inpatient (IN) | payer MEDICARE ==
[~2023-11-02] VITALS: Ht 165.1 cm; Wt 81.6 kg
[~2023-11-02 13:04] MED LIST changes: -ACET-73 PO; -BISA10SU11 RC; -CYCL5TAB PO; +DAPA10TA PO; -ERGO2500 PO; +ERGO500040 PO; +GABA-532 PO; -HYDR-3974 PO; -ONDA-104 PO; -PREG100C PO; +PROP60CA38 PO; -RIVA10TA PO; +RIVA2.5T PO
[2023-11-02 20:43] VITALS: BP 102/60; TEMP 97.9; O2SAT 95
[2023-11-03] MEDS ORDERED: REMEDY ESSENTIAL ZINC PASTE 113 GM TOP PRN (05:30)
[2023-11-03 06:20] VITALS: BP 119/71; TEMP 98.1; O2SAT 94
[2023-11-03] MEDS ORDERED: ZOLP5TAB8 PO (09:19)
[2023-11-03] MEDS ORDERED: DULO30CA2 PO (09:19)
[2023-11-03] MEDS ORDERED: HEPA500034 SQ (09:19)
[2023-11-03] MEDS ORDERED: OXYC-117 PO (09:19)
[2023-11-03] MEDS: HYDROCODONE/APAP 10-325 MG TABLET PO PRN (11:33)
[2023-11-03] MEDS: LOSARTAN POTASSIUM 50 MG TABLET PO SCH (14:00)
[2023-11-03] MEDS ORDERED: ZOLPIDEM 5 MG TABLET PO PRN (14:00)
[2023-11-03] MEDS ORDERED: OXYCODONE/APAP 5-325 MG TABLET PO PRN (14:00)
[2023-11-03] MEDS: DULOXETINE 30 MG CAPSULE.DR PO SCH (16:24)
[2023-11-03 16:33] VITALS: BP 100/57; TEMP 98.9; O2SAT 95
[2023-11-03] MEDS: HEPARIN SODIUM,PORCINE 5,000 UNITS/ML VIAL SQ SCH (16:41)
[2023-11-03 19:45] VITALS: BP 106/62; TEMP 99; O2SAT 93
[2023-11-03] MEDS: ATORVASTATIN 10 MG TABLET PO SCH (20:28)
[2023-11-04 06:11] VITALS: BP 102/61; TEMP 98.2
[2023-11-04 07:41] LABS: BASOPHILS % (AUTO) 0.5 % (0.0-2.0); EOSINOPHILS # (AUTO) 0.1 K/uL (0.0-0.7); EOSINOPHILS % (AUTO) 2.6 % (0.0-7.0); HEMATOCRIT 24.3 % (31.2-41.9); HEMOGLOBIN 8.5 g/dL (10.9-14.3); LYMPHOCYTES # (AUTO) 1.3 K/uL (0.8-4.8); LYMPHOCYTES % (AUTO) 24.1 % (20.5-51.5); MEAN CORPUSCULAR HEMOGLOBIN 32.3 uug (24.7-32.8); MEAN CORPUSCULAR HGB CONC 35 g/dL (32.3-35.6); MEAN CORPUSCULAR VOLUME 92.1 fL (75.5-95.3); MONOCYTES # (AUTO) 0.5 K/uL (0.1-1.30); NEUTROPHILS # (AUTO) 3.6 K/uL (1.8-8.9); NEUTROPHILS % (AUTO) 63.8 % (38.5-71.5); PLATELET COUNT (AUTO) 189 K/uL (179-408); RED BLOOD CELL COUNT(AUTO) 2.64 MIL/uL (3.63-4.92); RED CELL DISTRIBUTION WIDTH 15.6 % (12.3-17.7); WHITE BLOOD COUNT (AUTO) 5.6 K/uL (3.8-11.8)
[2023-11-04 07:49] LABS: DIFFERENTIAL COMMENT 1
[2023-11-04 07:54] LABS: ALBUMIN 1.9 g/dL (3.4-5.0); BILIRUBIN,TOTAL 0.5 mg/dL (0.2-1.0); CALCIUM 8.4 mg/dL (8.5-10.1); CREATININE 0.7 mg/dL (0.6-1.3); PHOSPHOROUS 3.6 mg/dL (2.5-4.9); POTASSIUM 3.9 mmol/L (3.5-5.1); TOTAL PROTEIN, SERUM 6.8 g/dL (6.4-8.2)
[2023-11-04 08:59] LABS: THYROID STIMULATING HORMONE 0.679 mIU/mL (0.358-3.740)
[2023-11-04 09:04] VITALS: BP 101/57; TEMP 98.2; O2SAT 97
[2023-11-04] MEDS: BISACODYL 5 MG TABLET.DR PO ONE (12:51)
[2023-11-04] MEDS: PROTEIN SUPPLEMENT (PROSTAT) 30 ML LIQUID PO SCH (12:52)
[2023-11-04 16:00] VITALS: BP 101/55; TEMP 97.6; O2SAT 97
[2023-11-04 20:00] VITALS: BP 104/62; TEMP 97.9; O2SAT 98
[2023-11-04] MEDS: DOCUSATE SODIUM 100 MG CAPSULE PO SCH (20:27)
[2023-11-05 06:00] VITALS: BP 122/68; TEMP 97.8; O2SAT 94
[2023-11-05] MEDS: PANTOPRAZOLE SODIUM 40 MG TABLET.DR PO SCH (06:07)
[2023-11-05 07:58] LABS: *OCCULT BLOOD STOOL NEGATIVE (NEGATIVE)
[2023-11-05 16:00] VITALS: BP 138/55; TEMP 98.6; O2SAT 97
[2023-11-05 19:32] VITALS: BP 107/63; TEMP 98.2; O2SAT 95
[2023-11-06 06:04] VITALS: BP 124/68; TEMP 98.4; O2SAT 99
[2023-11-06 09:00] VITALS: BP 138/69; TEMP 98.2; O2SAT 98
[2023-11-06 11:00] VITALS: BP 110/71; O2SAT 99
[2023-11-06 16:00] VITALS: BP 115/79; TEMP 98.7; O2SAT 97
[2023-11-06] MEDS: ENSURE WITH FIBER 237 ML LIQUID (CHOCOLATE) PO SCH (17:43)
[2023-11-06 20:00] VITALS: BP 105/59; TEMP 98.1; O2SAT 97
[2023-11-06] MEDS: FERROUS GLUCONATE 324 MG TABLET PO SCH (21:00)
[2023-11-07 06:00] VITALS: BP 105/61; TEMP 98.3; O2SAT 97
[2023-11-07] MEDS: ONDANSETRON HCL 4 MG TABLET PO PRN (11:31)
[2023-11-07 16:01] VITALS: BP 99/60; TEMP 98.5; O2SAT 97
[2023-11-07 20:00] VITALS: BP 103/55; TEMP 98.4; O2SAT 96
[2023-11-08 06:00] VITALS: BP 101/60; TEMP 98.6; O2SAT 98
[2023-11-08 16:15] VITALS: BP 103/60; TEMP 98; O2SAT 97
[2023-11-08 19:39] VITALS: BP 101/59; TEMP 98.7; O2SAT 98
[2023-11-09 06:30] VITALS: BP 112/70; TEMP 99; O2SAT 94
[2023-11-09 16:01] VITALS: BP 101/62; TEMP 98.3; O2SAT 96
[2023-11-09 19:38] VITALS: BP 111/60; TEMP 97.9; O2SAT 96
[2023-11-10 06:10] VITALS: BP 123/68; TEMP 98.1; O2SAT 95
[2023-11-10 09:32] VITALS: BP 100/64; TEMP 98; O2SAT 92
[2023-11-10 09:34] VITALS: BP 136/86; TEMP 98.2; O2SAT 99
[2023-11-10 17:48] VITALS: BP 107/64; TEMP 98.2; O2SAT 98
[2023-11-10 20:06] VITALS: BP 99/52; TEMP 98.2; O2SAT 97
[2023-11-11 05:58] VITALS: BP 109/63; TEMP 97.8; O2SAT 100
[2023-11-11] MEDS ORDERED: diphenhydrAMINE 25 MG/10 ML UDC NG PRN (10:15)
[2023-11-11] MEDS: diphenhydrAMINE 25 MG CAP PO PRN (11:26)
[2023-11-11] MEDS: NYSTATIN POWDER 15 GM BOTTLE TOP SCH (11:26)
[2023-11-11 16:29] VITALS: BP 95/54; TEMP 98.2; O2SAT 94
[2023-11-11 20:11] VITALS: BP 106/59; TEMP 98.4; O2SAT 96
[2023-11-12 06:23] VITALS: BP 103/70; TEMP 98.3; O2SAT 96
[2023-11-12] MEDS: BISACODYL 5 MG TABLET.DR PO PRN (07:18)
[2023-11-12 10:53] VITALS: BP 106/71; TEMP 98.8; O2SAT 99
[2023-11-12] MEDS: BISACODYL 10 MG SUPP.RECT RC PRN (12:04)
[2023-11-12] MEDS: CEphaleXIN 500 MG CAPSULE PO SCH (13:58)
[2023-11-12 15:42] VITALS: BP 102/48; TEMP 98.8; O2SAT 97
[2023-11-12 20:28] VITALS: BP 95/56; TEMP 98.2; O2SAT 96
[2023-11-13 06:15] VITALS: BP 121/59; TEMP 98.1; O2SAT 98
[2023-11-13 15:50] VITALS: BP 115/59; TEMP 97.8; O2SAT 100
[2023-11-13 20:00] VITALS: BP 105/66; TEMP 97.9; O2SAT 96
[2023-11-14 06:10] VITALS: BP 122/58; TEMP 98.1; O2SAT 98
[2023-11-14 06:28] LABS: BASOPHILS % (AUTO) 0.6 % (0.0-2.0); EOSINOPHILS # (AUTO) 0.2 K/uL (0.0-0.7); EOSINOPHILS % (AUTO) 5.2 % (0.0-7.0); HEMATOCRIT 25.8 % (31.2-41.9); HEMOGLOBIN 8.6 g/dL (10.9-14.3); LYMPHOCYTES # (AUTO) 1.2 K/uL (0.8-4.8); LYMPHOCYTES % (AUTO) 26.3 % (20.5-51.5); MEAN CORPUSCULAR HEMOGLOBIN 31.4 uug (24.7-32.8); MEAN CORPUSCULAR HGB CONC 33 g/dL (32.3-35.6); MEAN CORPUSCULAR VOLUME 94.3 fL (75.5-95.3); MONOCYTES # (AUTO) 0.4 K/uL (0.1-1.30); MONOCYTES % (AUTO) 9.1 % (0.0-11.0); NEUTROPHILS # (AUTO) 2.6 K/uL (1.8-8.9); NEUTROPHILS % (AUTO) 58.8 % (38.5-71.5); PLATELET COUNT (AUTO) 275 K/uL (179-408); RED BLOOD CELL COUNT(AUTO) 2.73 MIL/uL (3.63-4.92); RED CELL DISTRIBUTION WIDTH 16.4 % (12.3-17.7); WHITE BLOOD COUNT (AUTO) 4.4 K/uL (3.8-11.8)
[2023-11-14 06:50] LABS: CALCIUM 8.7 mg/dL (8.5-10.1); CREATININE 0.9 mg/dL (0.6-1.3); MAGNESIUM 1.4 mg/dL (1.8-2.4); PHOSPHOROUS 4.2 mg/dL (2.5-4.9); POTASSIUM 4.3 mmol/L (3.5-5.1)
[2023-11-14 06:55] LABS: DIFFERENTIAL COMMENT 1
[2023-11-14] MEDS: MAGNESIUM OXIDE 400 MG TABLET PO ONE (11:09)
[2023-11-14 16:07] VITALS: BP 124/59; TEMP 97.9; O2SAT 98
== END 2023-11-14 17:02 | disposition home health service (06) | DRG 559 ==
PROVIDERS: ADMIT Physical Medicine & Rehabilitation Pain Medicine; ATTEND Physical Medicine & Rehabilitation Pain Medicine
DX: S72.141D Displaced intertrochanteric fracture of right femur, subsequent encounter for closed fracture with routine healing (principal); E43 Unspecified severe protein-calorie malnutrition; D68.59 Other primary thrombophilia; L03.115 Cellulitis of right lower limb; S72.111D Displaced fracture of greater trochanter of right femur, subsequent encounter for closed fracture with routine healing; E11.9 Type 2 diabetes mellitus without complications; D50.9 Iron deficiency anemia, unspecified; W01.0XXD Fall on same level from slipping, tripping and stumbling without subsequent striking against object, subsequent encounter; E78.5 Hyperlipidemia, unspecified; I10 Essential (primary) hypertension; I70.0 Atherosclerosis of aorta; B35.6 Tinea cruris; E66.9 Obesity, unspecified; Z68.30 Body mass index [BMI] 30.0-30.9, adult; E83.42 Hypomagnesemia; Z79.891 Long term (current) use of opiate analgesic; Z96.651 Presence of right artificial knee joint; M51.16 Intervertebral disc disorders with radiculopathy, lumbar region; Z98.1 Arthrodesis status
CPT/HCPCS: 36415; 73502; 82378; 83550; 83735; 84100; 84443; 85025; 93005; 97535-GO-CO; J1644; Q0162; Q0163